=== PATIENT | female | born 1985 | race Caucasian/White ===

== ENCOUNTER 2018-05-18 11:22 | Emergency (ER) | payer SELFPAY ==
[~2018-05-18] VITALS: Ht 175.3 cm; Wt 75.1 kg
[2018-05-18 11:49] LABS: HEMATOCRIT 39.6 % (36.0-46.0); HEMOGLOBIN 13.8 G/DL (11.9-15.5); MCH 30.9 PG (29.0-34.0); MCHC 34.8 G/DL (30.0-36.0); MCV 88.6 FL (83-99); PLATELET COUNT 284 K/uL (156-360); RBC DIS.WIDTH-CV 13.9 % (11.8-14.6); RBC DIS.WIDTH-SD 45.2 % (39-53); RED BLOOD COUNT 4.47 M/uL (3.80-5.20); WHITE BLOOD COUNT 6.7 K/uL (4.1-10.2)
[2018-05-18 12:00] LABS: ALBUMIN 4.2 g/dL (3.2-4.8); CHLORIDE 107 mEq/L (99-109); POTASSIUM 4.1 mEq/L (3.7-5.4)
[2018-05-18 12:02] LABS: GLUCOSE 96 mg/dL (70-99); TOTAL PROTEIN 7.4 g/dL (6.4-8.3)
[2018-05-18 12:04] LABS: TOTAL BILIRUBIN 0.5 mg/dL (0.0-1.0)
[2018-05-18 12:06] LABS: GFR ESTIMATE (CALCULATED) > 59 mL/min/
[2018-05-18 12:09] LABS: ALT (GPT) 22 IU/L (3-49)
[2018-05-18 12:14] LABS: APPEARANCE CLEAR ((CLEAR)); BILIRUBIN NEGATIVE; BLOOD NEGATIVE; COLOR STRAW ((YELLOW)); GLUCOSE (STRIP) NEGATIVE; KETONES NEGATIVE; LEUKOCYTES SMALL; NITRITE NEGATIVE; PROTEIN (STRIP) NEGATIVE; SPECIFIC GRAVITY 1.006 (1.000-1.030); UROBILINOGEN 0.2 MG/DL (0.2-1.0)
[2018-05-18 12:15] LABS: QUANTITATIVE HCG < 4.0 MIU/ML
[2018-05-18 12:17] LABS: BACTERIA RARE /HPF; EPITHELIAL CELLS 1+ /HPF; MUCUS NONE SEEN /LPF; RED BLOOD CELLS 0-5 /HPF (0-5); UCUL ADDED? NO; WHITE BLOOD CELLS 0-5 /HPF (0-5)
[2018-05-18 12:24] LABS: SODIUM 139 mEq/L (136-147)
[2018-05-18 12:30] LABS: ALKALINE PHOSPHATASE 65 IU/L (3-129); CREATININE 0.7 mg/dL (0.6-1.3)
[2018-05-18 12:31] LABS: UREA NITROGEN (BUN) 12 mg/dL (9-23)
[2018-05-18 12:32] LABS: AST (GOT) 27 IU/L (2-34)
[2018-05-18 14:14] VITALS: BP 113/74
== END 2018-05-18 14:15 | disposition home or self-care (01) ==
LOC: EME 11:22
DX: S09.90XA Unspecified injury of head, initial encounter (principal); W01.198A Fall on same level from slipping, tripping and stumbling with subsequent striking against other object, initial encounter; Y92.002 Bathroom of unspecified non-institutional (private) residence as the place of occurrence of the external cause; F32.9 Major depressive disorder, single episode, unspecified
CPT/HCPCS: 70450; 80053; 81003; 84702; 85027; 93005; 99281; 99284